=== PATIENT | female | born 1950 | race Caucasian/White ===

== ENCOUNTER 2020-09-09 06:34 | Outpatient (CLI) | payer MEDICARE ==
[2020-09-09] MEDS ORDERED: REGADENOSON 0.4 MG/5 ML SYRINGE ONE (07:21)
== END 2020-09-09 23:59 | disposition home or self-care (01) ==
LOC: CVU 06:34 → CFH 23:59
PROVIDERS: ATTEND Internal Medicine Cardiovascular Disease
DX: I08.0 Rheumatic disorders of both mitral and aortic valves (principal); I65.23 Occlusion and stenosis of bilateral carotid arteries; I11.9 Hypertensive heart disease without heart failure; I67.9 Cerebrovascular disease, unspecified; R07.89 Other chest pain; R06.02 Shortness of breath
CPT/HCPCS: 78452; 93017; 93306; 93356; 93880; A9502; J2785